=== PATIENT | female | born 1935 | race Caucasian/White ===

== ENCOUNTER 2020-04-10 17:42 | Emergency (ER) | payer MEDICARE, BC ==
--- NOTE | 2020-04-10 18:18 | PCM.SN.2 ---
- Free Text/Narrative Note: EKG Time 609pm Rate 59 NSR no ROLDAN
--- NOTE | 2020-04-10 18:26 | EDM.PDOC ---
ED HPI GENERAL MEDICAL PROBLEM - General Chief Complaint: Cardiovascular Problem Stated Complaint: HIGH BLOOD PRESSURE Time Seen by Provider: 04/10/20 17:47 Source of Information: Reports: Patient History Limitations: Reports: No Limitations - History of Present Illness INITIAL COMMENTS - FREE TEXT/NARRATIVE: Presents reporting clamminess. The patient states that this morning she rode her exercise bike then got up and went about her morning routines including showering. Afterward, she had a vague feeling "like I need to sit" and was a little clammy for a while. She had no nausea, vomiting, dizziness, chest pain, shortness of breath, abdominal pain, fever. She states she did notice some burping this afternoon. The "feeling" and clamminess resolved. Later, she was telling her daughter about her earlier symptoms. At her daughter's urging, she took her blood pressure which was elevated. She can not recall what the number was. She states that she has a labile blood pressure but when I asked her what she meant by that she said it runs from 122-136 systolic. She saw her primary provider Dr. Smith on April 02. At that visit he told her she was doing well. She had some lab work done: Sodium 132, potassium 4.8, BUN 20, creatinine 1.0, TSH 1.6, glucose 97, hemoglobin 13.1. She has a history of essential hypertension controlled with losartan hydrochlorothiazide and anxiety controlled with venlafaxine. - Related Data Allergies Allergy/AdvReac Type Severity Reaction Status Date / Time Sulfa (Sulfonamide Allergy Mild Rash Verified 04/10/20 18:03 Antibiotics) Home Meds: Home Meds Latanoprost 1 drop TOP DAILY 01/06/18 [History] Losartan/Hydrochlorothiazide [Losartan-HCTZ 50-12.5 MG] 1 tab PO DAILY 01/06/18 [History] Timolol [Betimol] 1 drop TOP DAILY 01/06/18 [History] Venlafaxine HCl [Venlafaxine ER] 75 mg PO DAILY 01/06/18 [History] Aspirin 81 mg PO DAILY 04/10/20 [History] Past Medical History HEENT History: Reports: Glaucoma Cardiovascular History: Reports: Hypertension [employer] History: Reports: Musculoskeletal History: Reports: Arthritis Psychiatric History: Reports: Anxiety - Infectious Disease History Infectious Disease History: Reports: Chicken Pox Social & Family History - Family History Family Medical History: No Pertinent Family History - Tobacco Use Tobacco Use Status *Q: Never Tobacco User - Caffeine Use Caffeine Use: Reports: Coffee - Recreational Drug Use Recreational Drug Use: No ED ROS GENERAL - Review of Systems Review Of Systems: Comprehensive ROS is negative, except as noted in HPI. ED EXAM, GENERAL - Physical Exam Exam: See Below Exam Limited By: No Limitations General Appearance: Alert, WD/WN, No Apparent Distress Ears: Normal External Exam Nose: Normal Inspection Throat/Mouth: Normal Inspection, Normal Oropharynx Head: Atraumatic, Normocephalic Neck: Normal Inspection Respiratory/Chest: No Respiratory Distress, Lungs Clear, Normal Breath Sounds GI/Abdominal: Soft, Non-Tender Back Exam: Normal Inspection Extremities: Normal Inspection, Normal Range of Motion Neurological: Alert, Oriented, Normal Cognition Psychiatric: Normal Affect, Normal Mood Skin Exam: Warm, Dry, Intact, Normal Color, No Rash Lymphatic: No Adenopathy Course - Vital Signs Last Recorded V/S: Last Vital Signs Temp 35.7 C L 04/10/20 18:04 Pulse 66 04/10/20 18:04 Resp 17 04/10/20 18:04 BP 181/70 H 04/10/20 19:31 Pulse Ox 98 04/10/20 18:04 - Orders/Labs/Meds Orders: Active Orders 24 hr Category Date Time Status EKG 12 Lead [EKG Documentation Completion] [RC] STAT Care 04/10/20 18:04 Active Labs: Laboratory Tests 04/10/20 04/10/20 Range/Units 18:22 18:22 WBC 8.13 (4.0-11.0) K/uL RBC 4.24 L (4.30-5.90) M/uL Hgb 12.9 (12.0-16.0) g/dL Hct 38.5 (36.0-46.0) % MCV 90.8 (80.0-98.0) fL MCH 30.4 (27.0-32.0) pg MCHC 33.5 (31.0-37.0) g/dL RDW Std Deviation 44.9 (28.0-62.0) fl RDW Coeff of Giorgi 14 (11.0-15.0) % Plt Count 198 (150-400) K/uL MPV 10.00 (7.40-12.00) fL Neut % (Auto) 64.5 (48.0-80.0) % Lymph % (Auto) 27.3 (16.0-40.0) % [place] % (Auto) 7.1 (0.0-15.0) % Eos % (Auto) 0.7 (0.0-7.0) % Baso % (Auto) 0.4 (0.0-1.5) % Neut # (Auto) 5.2 (1.4-5.7) K/uL Lymph # (Auto) 2.2 (0.6-2.4) K/uL Flagler # (Auto) 0.6 (0.0-0.8) K/uL Eos # (Auto) 0.1 (0.0-0.7) K/uL Baso # (Auto) 0.0 (0.0-0.1) K/uL Nucleated RBC % 0.0 /100WBC Nucleated RBCs # 0 K/uL Sodium 135 L (136-145) mmol/L Potassium 4.4 (3.5-5.1) mmol/L Chloride 97 L (98-107) mmol/L Carbon Dioxide 28.3 (21.0-32.0) mmol/L BUN 16 (7.0-18.0) mg/dL Creatinine 0.9 (0.6-1.0) mg/dL Est Cr Clr Drug Dosing 40.18 mL/min Estimated GFR (MDRD) 59.7 ml/min Glucose 105 (74-106) mg/dL Calcium 10.1 (8.5-10.1) mg/dL Total Bilirubin 0.3 (0.2-1.0) mg/dL AST 17 (15-37) IU/L ALT 18 (14-63) IU/L Alkaline Phosphatase 89 (46-116) U/L Troponin I < 0.050 (0.000-0.056) ng/mL Total Protein 7.8 (6.4-8.2) g/dL Albumin 3.7 (3.4-5.0) g/dL Globulin 4.1 H (2.6-4.0) g/dL Albumin/Globulin Ratio 0.9 (0.9-1.6) Meds: Medications Discontinued Medications Generic Name Dose Route Start Last Admin Trade Name Freq PRN Reason Stop Dose Admin Clonidine HCl 0.1 mg 04/10/20 19:15 04/10/20 19:31 Catapres PO 04/10/20 19:16 0.1 mg ONETIME ONE Administration - Re-Assessments/Exams Free Text/Narrative Re-Assessment/Exam: 04/10/20 20:[address] Braswell. Patient has been asymptomatic since this morning and during her entire ER stay. Catapress was successful in lowering her systolic BP some. She will need a neurology appointment for MRI brain, carotid US. Departure - Departure Time of Disposition: 20:48 Disposition: Home, Self-Care Condition: Good Clinical Impression: Clamminess Referrals: Roosevelt Smith MD [Primary Care Provider] - Ayanna Foote MD [Physician] - Forms: ED Department Discharge Additional Instructions: The following information is given to patients seen in the emergency department who are being discharged to home. This information is to outline your options for follow-up care. We provide all patients seen in our emergency department with a follow-up referral. The need for follow-up, as well as the timing and circumstances, are variable depending upon the specifics of your emergency department visit. If you don't have a primary care physician on staff, we will provide you with a referral. We always advise you to contact your personal physician following an e mergency department visit to inform them of the circumstance of the visit and for follow-up with them and/or the need for any referrals to a consulting specialist. The emergency department will also refer you to a specialist when appropriate. This referral assures that you have the opportunity for follow-up care with a specialist. All of these measure are taken in an effort to provide you with op timal care, which includes your follow-up. Under all circumstances we always encourage you to contact your private physician who remains a resource for coordinating your care. When calling for follow-up care, please make the office aware that this follow-up is from your recent emergency room visit. If for any reason you are refused follow-up, please contact the [facility] Emergency Department at and asked to speak to the emergency department charge nurse. [facility] - Neurology Professional Building [address] [place] [address], [address] [place] [address] 1. Neurology clinic should call you but you should call them as well at the clinic number listed above. 2. Return promptly for stroke warning signs (see separate hand out) chest pain, visual symptoms, headache, other worrisome symptoms Sepsis Event Note (ED) - Evaluation Sepsis Screening Result: No Definite Risk - Focused Exam Vital Signs: Vital Signs Temp Pulse Resp BP BP Pulse Ox 04/10/20 19:31 181/70 H 04/10/20 18:04 35.7 C L 66 17 190/73 H 98 - My Orders Last 24 Hours: My Active Orders 04/10/20 18:04 EKG 12 Lead [EKG Documentation Completion] [RC] STAT - Assessment/Plan Last 24 Hours: My Active Orders 04/10/20 18:04 EKG 12 Lead [EKG Documentation Completion] [RC] STAT
--- NOTE | 2020-04-10 18:56 | PCM.PRNOTE ---
- Free Text/Narrative Note: EKG done at 1809. Sinus rhythm heart rate 59 left axis deviation and late transition Q wave in the precordium. IN is 197 QT is 408. Bud is -39. This is compared to 01/06/2018 there is no change. Impression no acute injury
[2020-04-10 18:59] LABS: BLOOD UREA NITROGEN,BUN 16 mg/dL (7.0-18.0); CARBON DIOXIDE,CO2 28.3 mmol/L (21.0-32.0); CHLORIDE,CL 97 mmol/L (98-107); GLUCOSE RANDOM 105 mg/dL (74-106); POTASSIUM,K 4.4 mmol/L (3.5-5.1); SODIUM,NA 135 mmol/L (136-145)
[2020-04-10] MEDS: cloNIDine 0.1 MG Tab PO ONE (19:31)
== END 2020-04-10 21:00 | disposition home or self-care (01) ==
LOC: MW.ED 17:42
DX: R23.1 Pallor (principal); I10 Essential (primary) hypertension; Z79.899 Other long term (current) drug therapy; Z88.2 Allergy status to sulfonamides; Z79.82 Long term (current) use of aspirin
CPT/HCPCS: 36415; 80053; 84484; 85025; 93005; 99283; A9270; 93010

== ENCOUNTER 2021-06-04 10:44 | Day surgery (SDC) | payer MEDICARE, BC ==
[~2021-06-04 10:44] MED LIST: Lactated Ringers 1,000 ML IV SCH; Lidocaine 1% 5 ML VIAL ONE; Propofol 200 MG/20 ML SDV ONE; Sodium Chloride 0.9% 10 ML Syringe FLUSH PRN; Sodium Chloride 0.9% 2.5 ML Syringe FLUSH PRN; Sodium Chloride 0.9% 20 ML SDV IV PRN; fentaNYL 100 MCG/2 ML SDV ONE
== END 2021-06-04 13:45 | disposition home or self-care (01) ==
LOC: MW.SDS 10:44
PROVIDERS: ATTEND Surgery
DX: K57.30 Diverticulosis of large intestine without perforation or abscess without bleeding (principal); F41.9 Anxiety disorder, unspecified; K21.9 Gastro-esophageal reflux disease without esophagitis; I10 Essential (primary) hypertension; E78.00 Pure hypercholesterolemia, unspecified; M81.0 Age-related osteoporosis without current pathological fracture; Z88.2 Allergy status to sulfonamides; Z98.890 Other specified postprocedural states; Z90.49 Acquired absence of other specified parts of digestive tract; Z79.899 Other long term (current) drug therapy; Z86.010 Personal history of colon polyps; Z80.0 Family history of malignant neoplasm of digestive organs
CPT/HCPCS: 45330; J2704; J3010; J7120; 00811; 99100

== ENCOUNTER 2021-08-09 20:57 | Emergency (ER) | payer MEDICARE, BC ==
[2021-08-09 22:48] LABS: CARBON DIOXIDE,CO2 28.8 mmol/L (21.0-32.0); POTASSIUM,K 4.3 mmol/L (3.5-5.1)
[2021-08-10] MEDS ORDERED: Lactated Ringers 1,000 ML IV STA (00:09)
[2021-08-10] MEDS ORDERED: fentaNYL 50 MCG/ML SDV IVPUSH ONE (00:14)
== END 2021-08-10 00:30 ==
LOC: MW.ED 20:57
DX: S72.042A Displaced fracture of base of neck of left femur, initial encounter for closed fracture (principal); S62.307A Unspecified fracture of fifth metacarpal bone, left hand, initial encounter for closed fracture; S62.305A Unspecified fracture of fourth metacarpal bone, left hand, initial encounter for closed fracture; I10 Essential (primary) hypertension; Z90.49 Acquired absence of other specified parts of digestive tract; Z79.899 Other long term (current) drug therapy; Z88.2 Allergy status to sulfonamides; Z20.822 Contact with and (suspected) exposure to COVID-19; W10.9XXA Fall (on) (from) unspecified stairs and steps, initial encounter
CPT/HCPCS: 29125; 36415; 51702; 72170; 72170-26; 73130-26-LT; 73130-LT; 73552-26-LT; 73552-LT; 80053; 85025; 85610; 86850; 86900; 86901; 99285-25; J3010; J7120; U0002